=== PATIENT | male | born 1970 | race Caucasian/White ===

== ENCOUNTER 2024-06-23 21:06 | Emergency (ER) | payer SELFPAY ==
[2024-06-23 21:07] VITALS: BP 188/78
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
== END 2024-06-23 21:22 ==
LOC: EMR 21:06
PROVIDERS: EMERGENCY PHYSICIAN Student in an Organized Health Care Education/Training Program
DX: S05.11XA Contusion of eyeball and orbital tissues, right eye, initial encounter (principal); V49.9XXA Car occupant (driver) (passenger) injured in unspecified traffic accident, initial encounter; K21.9 Gastro-esophageal reflux disease without esophagitis; F17.200 Nicotine dependence, unspecified, uncomplicated
CPT/HCPCS: 99282